=== PATIENT | female | born 1945 | race Caucasian/White ===

== ENCOUNTER 2017-02-09 09:45 | Outpatient (CLI) | payer MEDICARE, OTHER ==
--- NOTE | 2017-02-09 13:24 | MMO ---
BILATERAL SCREENING MAMMOGRAM: Date: 02/09/17 COMPARISON: 03/06/15 and 02/20/14. HISTORY: Screening. FINDINGS: This patient's mammogram was interpreted with the assistance of computer-aided detection. Calcifications are seen bilaterally. There are post biopsy clips present within the left breast, stab le. There is no dominant mass or architectural distortion. No concerning calcifications are seen. IMPRESSION: BIRADS 2: Benign Finding(s) Annual screening mammography recommended. POS: [facility]UR[facility]
== END 2017-02-09 09:46 | disposition home or self-care (01) ==
LOC: SCSMAMMO 09:45
PROVIDERS: ATTEND Obstetrics & Gynecology
DX: Z12.31 Encounter for screening mammogram for malignant neoplasm of breast (principal)
CPT/HCPCS: 77067; G0202

== ENCOUNTER 2018-02-24 10:00 | Outpatient (CLI) | payer MEDICARE ==
--- NOTE | 2018-02-24 11:57 | MMO ---
BILATERAL DIGITAL SCREENING MAMMOGRAMS: History: 72-year-old female presents for digital screening mammography. Comparison: 02-09-17, 03-06-15, 02-20-14 This study is interpreted with the assistance of computer aided detection. FINDINGS: Scattered fibroglandular densities are noted bilaterally. Stable typically benign calcifications. Sta ble left breast biopsy clips. Stable bilateral parenchymal density asymmetries. IMPRESSION: BIRADS category 2 - benign findings. Continued routine screening. POS: [facility]UREN
== END 2018-02-24 10:01 | disposition home or self-care (01) ==
LOC: SCSMAMMO 10:00
PROVIDERS: ATTEND Obstetrics & Gynecology
DX: Z12.31 Encounter for screening mammogram for malignant neoplasm of breast (principal)
CPT/HCPCS: 77067

== ENCOUNTER 2019-02-21 09:09 | Outpatient (CLI) | payer MEDICARE ==
--- NOTE | 2019-02-21 09:56 | BD ---
EXAM: Bone densitometry using DEXA HISTORY: 73 yo female. Screening for postmenopausal osteoporosis FINDINGS: L1--bone mineral density 0.853 g/sq cm; T score -1.2 ; Z score 0.9 L2--bone mineral density 0.920 g/sq cm; T score -1.0 ; Z score 1.4 L3--bone mineral density 0.916 g/sq cm; T score -1.5 ; Z score 1.0 L4--bone mineral density 0.876 g/sq cm; T score -1.7 ; Z score 0.9 Total L1-L4--bone mineral density 0.892 g/sq cm; T score -1.4 ; Z score 1.0 Left femoral neck--bone mineral density0.672; T score -1.6 ; Z score 0.5 Total proximal left femur--bone mineral density 0.867; T score -0.6 ; Z score 1.2 The 10 year fracture risk for a major osteoporotic fracture is 11% and for a hip fracture is 2.3%. IMPRESSION: Osteopenia
== END 2019-02-21 09:10 | disposition home or self-care (01) ==
LOC: BICMAMMO 09:09
PROVIDERS: ATTEND Nurse Practitioner Family
DX: Z13.820 Encounter for screening for osteoporosis (principal); M85.89 Other specified disorders of bone density and structure, multiple sites
CPT/HCPCS: 77080

== ENCOUNTER 2021-09-11 07:26 | Outpatient (CLI) | payer MEDICARE ==
[2021-09-11] MEDS ORDERED: ISOVUE-370 76%-LOCM 1 ML ONE (08:00)
== END 2021-09-11 07:27 | disposition home or self-care (01) ==
LOC: BICCT 07:26
PROVIDERS: ATTEND Physician Assistant Medical
DX: R10.10 Upper abdominal pain, unspecified (principal); K80.20 Calculus of gallbladder without cholecystitis without obstruction; D25.9 Leiomyoma of uterus, unspecified; K57.30 Diverticulosis of large intestine without perforation or abscess without bleeding
CPT/HCPCS: 74177; 82565; Q9966

== ENCOUNTER 2023-02-25 13:14 | Outpatient (CLI) | payer MEDICARE ==
[~2023-02-25 13:14] MED LIST: Iopamidol 370 76% 100 ML VIAL ONE
== END 2023-02-25 13:15 | disposition home or self-care (01) ==
LOC: CT 13:14
PROVIDERS: ATTEND Thoracic Surgery (Cardiothoracic Vascular Surgery)
DX: I65.23 Occlusion and stenosis of bilateral carotid arteries (principal)
CPT/HCPCS: 70498; 82565

== ENCOUNTER 2023-03-20 09:30 | Outpatient (CLI) | payer MEDICARE ==
[2023-03-20 10:23] LABS: Hematocrit 36.6 % (34.9-44.5); Hemoglobin 12.1 g/dL (12.0-15.5); Mean Corpuscular HGB CONC 33.1 g/dL (32.0-36.0); Mean Corpuscular Volume 93.8 fl (81.6-98.3); Mean Platelet Volume 9.9 fl (7.4-10.4); Platelet Count 256 10x3/uL (150-450); RBC Distribution Width 12.6 % (11.5-14.5); White Blood Cell (WBC) Count 5.4 10x3/uL (3.5-10.5)
[2023-03-20 10:47] LABS: Anion Gap 13 mmol/L (10-20); BUN (Urea Nitrogen) 21 mg/dL (9.8-20.1); Calc. Creatinine Clearance 0 mL/min (70-130); Calcium 9.7 mg/dL (7.8-10.44); Carbon Dioxide 27 mmol/L (23-31); Chloride 105 mmol/L (98-107); Estimated GFR 66; Glucose 78 mg/dL (83-110); Potassium 4.4 mmol/L (3.5-5.1); Sodium 141 mmol/L (136-145)
== END 2023-03-20 09:31 | disposition home or self-care (01) ==
LOC: LABBT 09:30
PROVIDERS: ATTEND Thoracic Surgery (Cardiothoracic Vascular Surgery)
DX: Z01.818 Encounter for other preprocedural examination (principal); I65.22 Occlusion and stenosis of left carotid artery
CPT/HCPCS: 80048; 85027; 93005; 93010

== ENCOUNTER 2023-03-23 09:00 | Inpatient (IN) | payer MEDICARE ==
[2023-03-25] MEDS ORDERED: Heparin 10,000 UNITS/ 10 ML VIAL ONE ×2 (06:40→06:50)
[2023-03-25] MEDS ORDERED: Heparin 5,000 UNITS/ML VIAL ONE (06:41)
[2023-03-25] MEDS ORDERED: Bupivacaine PF 0.5% 30 ML VIAL ONE (06:41)
[2023-03-25] MEDS ORDERED: Protamine Sulfate 50 MG/5 ML VIAL ONE (06:50)
[2023-03-25] MEDS ORDERED: Esmolol 100 MG/10 ML VIAL ONE (06:50)
[2023-03-25] MEDS ORDERED: CEFAZOLIN 1 GM VIAL ONE (06:50)
[2023-03-25] MEDS ORDERED: fentaNYL PF 100 MCG/2 ML SYRINGE ONE (06:50)
[2023-03-25] MEDS ORDERED: Rocuronium Bromide 10 MG/ML (10ML VIAL) ONE (06:50)
[2023-03-25] MEDS ORDERED: PHENYLEPHRINE-NS 100 MCG/ML 10 ML SYRINGE ONE (06:50)
[2023-03-25] MEDS ORDERED: Lidocaine 2% PF 100 mg/5 ml Syringe ONE (06:50)
[2023-03-25] MEDS ORDERED: Lidocaine 2% PF 5 ML VIAL ONE (06:50)
[2023-03-25] MEDS ORDERED: Dexamethasone 20 MG/5 ML VIAL ONE (06:50)
[2023-03-25] MEDS ORDERED: ePHEDrine Sulfate 50 MG/10 ML VIAL ONE (06:51)
[2023-03-25] MEDS ORDERED: SUGAMMADEX SODIUM 200 MG/2 ML VIAL ONE ×2 (06:51→08:57)
[2023-03-25] MEDS ORDERED: Midazolam HCl 2 mg/2 ml Vial ONE (06:51)
[2023-03-25] MEDS ORDERED: PROPOFOL 20 ML ONE (06:51)
[2023-03-25] MEDS ORDERED: Glycopyrrolate 0.2 MG/ML 5 ML SYRINGE ONE (07:59)
[2023-03-25] MEDS ORDERED: Dexmedetomidine 200 MCG/2 ML VIAL ONE (07:59)
[2023-03-25] MEDS ORDERED: EPINEPHrine 1 MG/ML VIAL ONE (08:13)
[2023-03-25] MEDS ORDERED: Labetalol HCl 100 MG/20 ML VIAL ONE (08:56)
[2023-03-25] MEDS ORDERED: Ondansetron PF 4 MG/2 ML Vial IVP PRN (09:35)
[2023-03-25] MEDS ORDERED: Acetaminophen 325 MG TAB PO PRN (09:35)
[2023-03-25] MEDS ORDERED: Phenylephrine 40 MG in Sodium Chloride 0.9% 250 ML 250 ML IVPB PRN (09:35)
[2023-03-25] MEDS ORDERED: traMADol HCl 50 MG TAB PO PRN (09:35)
[2023-03-25] MEDS ORDERED: niCARdipine 25 MG in Sodium Chloride 0.9% 250 ML 250 ML IVPB PRN (09:35)
[2023-03-25] MEDS ORDERED: Ipratropium/Albuterol 3 ML NEB NEB PRN (09:39)
[2023-03-25] MEDS ORDERED: Hydrochlorothiazide 25 MG TAB PO SCH (09:45)
[2023-03-25] MEDS ORDERED: Lisinopril 20 MG TAB PO SCH (09:45)
[2023-03-25 10:33] VITALS: BP 162/58
[2023-03-25] MEDS: Sodium Chloride 0.9% 1,000 ML IV SCH ×2 (10:33→19:30)
[2023-03-25] MEDS: CEFAZOLIN 2 GM in Sodium Chloride 0.9% 100 ML IVPB SCH ×2 (15:18→23:17)
[2023-03-26] MEDS ORDERED: Levothyroxine Sodium 100 MCG TAB PO SCH (06:00)
[2023-03-26] MEDS: CEFAZOLIN 2 GM in Sodium Chloride 0.9% 100 ML IVPB SCH (06:19)
[2023-03-26] MEDS: Sodium Chloride 0.9% 1,000 ML IV SCH (06:27)
[2023-03-26 08:54] VITALS: TEMP 98.8
[2023-03-26] MEDS ORDERED: Amlodipine 5 MG TAB PO SCH (09:00)
[2023-03-26] MEDS ORDERED: Lisinopril 20 MG TAB PO SCH (09:00)
[2023-03-26] MEDS ORDERED: Clopidogrel Bisulfate 75 MG TAB PO SCH (09:00)
[2023-03-26] MEDS ORDERED: Aspirin Chewable 81 MG TAB PO SCH (09:00)
[2023-03-26] MEDS ORDERED: Hydrochlorothiazide 25 MG TAB PO SCH (09:00)
== END 2023-03-26 11:22 | disposition home or self-care (01) | DRG 36 ==
LOC: SURG A 03-25 05:57 → CCU 03-25 10:21
PROVIDERS: ADMIT Thoracic Surgery (Cardiothoracic Vascular Surgery); ATTEND Thoracic Surgery (Cardiothoracic Vascular Surgery)
PROC: 037L3DZ Dilation of Left Internal Carotid Artery with Intraluminal Device, Percutaneous Approach (ICD-10-PCS; principal; 2023-03-25)
PROC: B3141ZZ Fluoroscopy of Left Common Carotid Artery using Low Osmolar Contrast (ICD-10-PCS; 2023-03-25)
PROC: B3171ZZ Fluoroscopy of Left Internal Carotid Artery using Low Osmolar Contrast (ICD-10-PCS; 2023-03-25)
DX: I65.22 Occlusion and stenosis of left carotid artery (principal); I10 Essential (primary) hypertension; E03.9 Hypothyroidism, unspecified; K21.9 Gastro-esophageal reflux disease without esophagitis; E66.9 Obesity, unspecified; Z98.890 Other specified postprocedural states; Z90.49 Acquired absence of other specified parts of digestive tract; Z68.30 Body mass index [BMI] 30.0-30.9, adult
CPT/HCPCS: C1725; C1769; C1876; J0171; J0690; J1100; J1642; J1644; J2001; J2250; J2704; J2720; J3490; J7050; S0020